=== PATIENT | female | born 1985 | race Two or more races ===

== ENCOUNTER 2021-03-17 17:17 | Emergency (ER) | payer BC ==
[~2021-03-17] VITALS: Ht 162.6 cm; Wt 59.5 kg
[2021-03-17] MEDS ORDERED: ASPIRIN CHEWABLE 81 MG TABLET. PO ONE (18:00)
[2021-03-17 18:10] LABS: BILIRUBIN,URINE NEGATIVE (NEG); CLARITY,URINE CLEAR; COLOR,URINE YELLOW; NITRITE,URINE NEGATIVE (NEG); PROTEIN,URINE NEGATIVE (NEG-TRACE); UROBILINOGEN,URINE 0.2 mg/dL (0.2 mg/dL)
[2021-03-17 18:18] LABS: BACTERIA,URINE 0 /HPF (0-FEW); RBC,URINE 0 /HPF (0-2); WBC,URINE 0 /HPF (0-4)
[2021-03-17 18:40] LABS: BASO # 0.1 x10^3/uL (0.0-0.2); BASO % 1 % (0-3); EOS # 0.1 x10^3/uL (0.0-0.7); EOS % 1 % (0-3); HEMATOCRIT 40.8 % (36.0-47.0); HEMOGLOBIN 13.9 g/dL (12.0-15.5); LYMPH # 2.3 x10^3/uL (1.0-4.8); LYMPH % 38 % (24-48); MEAN CORPUSCULAR HEMOGLOBIN 32 pg (25-35); MEAN CORPUSCULAR HGB CONC 34 g/dL (31-37); MEAN CORPUSCULAR VOLUME 94 fL (79-100); MONO # 0.4 x10^3/uL (0.0-1.1); MONO % 7 % (0-9); NEUT # 3.3 x10^3/uL (1.8-7.7); NEUT % 53 % (31-73); PLATELET COUNT 154 x10^3/uL (140-400); RED BLOOD COUNT 4.36 x10^6/uL (3.50-5.40); RED CELL DISTRIBUTION WIDTH 12.6 % (11.5-14.5); WHITE BLOOD COUNT 6.2 x10^3/uL (4.0-11.0)
--- NOTE | 2021-03-17 18:49 | RAD ---
AP chest. HISTORY: Chest pain AP view was taken of the chest. Lungs are clear. Heart is normal in size. There is no pleural effusio n. IMPRESSION: 1. No acute chest disease. Electronically signed by: Richard Marshall MD (03/17/2021 6:47 PM) [facility]
[2021-03-17 18:50] LABS: CALCIUM 8.6 mg/dL (8.5-10.1); CREATININE 0.6 mg/dL (0.6-1.0); GFR 113.8; POTASSIUM 3.7 mmol/L (3.5-5.1)
[2021-03-17 18:56] LABS: ALBUMIN 3.8 g/dL (3.4-5.0); ALBUMIN/GLOBULIN RATIO 1.1 (1.0-1.7); TOTAL BILIRUBIN 0.4 mg/dL (0.2-1.0); TOTAL PROTEIN 7.3 g/dL (6.4-8.2)
--- NOTE | 2021-03-17 20:06 | PHYS DOC ---
Past Medical History Additional Past Medical Histor: CVOID-JULY 2019 (JEFFERSON THRASHER APRN) Past Surgical History: No Surgical History (JEFFERSON THRASHER APRN) Smoking Status: Never Smoker Alcohol Use: None Drug Use: None (JEFFERSON THRASHER APRN) General Adult EDM: Chief Complaint: CHEST PAIN HPI: HPI: Patient is a 36-year-old female the presents today with chest pain over the last 2 days. Patient states that she has had a in the family, and has been dealing with issues with her son and has been under a lot of anxiety and stress over the last couple of weeks, and she feels like this chest pain is related to that. She called her primary care doctor's office and they directed her to come to the emergency department for evaluation. She denies shortness of air, fever, diaphoresis, nausea and vomiting, or cough. (JEFFERSON THRASHER APRN) Review of Systems: Review of Systems: Constitutional: Denies fever or chills. [] Eyes: Denies change in visual acuity. [] HENT: Denies nasal congestion or sore throat. [] Respiratory: Denies cough or shortness of breath. [] Cardiovascular: Chest pain GI: Denies abdominal pain, nausea, vomiting, bloody stools or diarrhea. [] : Denies dysuria. [] Musculoskeletal: Denies back pain or joint pain. [] Integument: Denies rash. [] Neurologic: Denies headache, focal weakness or sensory changes. [] Endocrine: Denies polyuria or polydipsia. [] Lymphatic: Denies swollen glands. [] Psychiatric: Denies depression or anxiety. [] (JEFFERSON THRASHER MEDICAL REPRESENTATIVE) Heart Score: C/O Chest Pain: Yes HEART Score for Chest Pain: HEART Score for Chest Pain Response (Comments) Value History Slighlty/Non-Suspicious 0 ECG Normal 0 Age < 45 0 Risk Factors No Risk Factors 0 Troponin < Normal Limit 0 Total 0 Risk Factors: Risk Factors: DM, Current or recent (<one month) smoker, HTN, HLP, family history of CAD, obesity. Risk Scores: Score 0 - 3: 2.5% MACE over next 6 weeks - Discharge Home Score 4 - 6: 20.3% MACE over next 6 weeks - Admit for Clinical Observation Score 7 - 10: 72.7% MACE over next 6 weeks - Early Invasive Strategies (JEFFERSON THRASHER APRN) Current Medications: Current Medications Medications (Trade) Dose Ordered Sig/Syeda Start Time Stop Time Status Last Admin Dose Admin Aspirin (Aspirin Chewable) 324 mg 1X ONCE 03/17/21 18:00 03/17/21 18:04 DC 03/17/21 18:39 324 MG (JEFFERSON THRASHER APRN) Allergies: Allergies: Allergies Coded Allergies Type Severity Reaction Last Updated Verified No Known Drug Allergies 03/17/21 No (JEFFERSON THRASHER APRN) Physical Exam: PE: Constitutional: Well developed, well nourished, no acute distress, non-toxic appearance. [] HENT: Normocephalic, atraumatic, bilateral external ears normal, oropharynx moist, no oral exudates, nose normal. [] Eyes: PERRLA, EOMI, conjunctiva normal, no discharge. [] Neck: Normal range of motion, no tenderness, supple, no stridor. [] Cardiovascular:Heart rate regular rhythm, no murmur [] Lungs & Thorax: Bilateral breath sounds clear to auscultation [] Abdomen: Bowel sounds normal, soft, no tenderness, no masses, no pulsatile masses. [] Skin: Warm, dry, no erythema, no rash. [] Back: No tenderness, no CVA tenderness. [] Extremities: No tenderness, no cyanosis, no clubbing, ROM intact, no edema. [] Neurologic: Alert and oriented X 3, normal motor function, normal sensory function, no focal deficits noted. [] Psychologic: Affect normal, judgement normal, mood normal. [] (JEFFERSON THRASHER MEDICAL REPRESENTATIVE) Current Patient Data: Labs: Laboratory Tests Test 03/17/21 17:35 03/17/21 17:42 03/17/21 18:30 Urine Collection Type Unknown Urine Color Yellow Urine Clarity Clear Urine pH 6.0 (<5.0-8.0) Urine Specific [place] 1.015 (1.000-1.030) Urine Protein Negative mg/dL (NEG-TRACE) Urine Glucose (UA) Negative mg/dL (NEG) Urine Ketones (Stick) 40 mg/dL (NEG) Urine Blood Negative (NEG) Urine Nitrite Negative (NEG) Urine Bilirubin Negative (NEG) Urine Urobilinogen Dipstick 0.2 mg/dL (0.2 mg/dL) Urine Leukocyte Esterase Negative (NEG) Urine RBC 0 /HPF (0-2) Urine WBC 0 /HPF (0-4) Urine Squamous Epithelial Cells Mod /LPF Urine Bacteria 0 /HPF (0-FEW) Urine Mucus Slight /LPF POC Urine HCG, Qualitative Hcg negative (Negative) White Blood Count 6.2 x10^3/uL (4.0-11.0) Red Blood Count 4.36 x10^6/uL (3.50-5.40) Hemoglobin 13.9 g/dL (12.0-15.5) Hematocrit 40.8 % (36.0-47.0) Mean Corpuscular Volume 94 fL (79-100) Mean Corpuscular Hemoglobin 32 pg (25-35) Mean Corpuscular Hemoglobin Concent 34 g/dL (31-37) Red Cell Distribution Width 12.6 % (11.5-14.5) Platelet Count 154 x10^3/uL (140-400) Neutrophils (%) (Auto) 53 % (31-73) Lymphocytes (%) (Auto) 38 % (24-48) Monocytes (%) (Auto) 7 % (0-9) Eosinophils (%) (Auto) 1 % (0-3) Basophils (%) (Auto) 1 % (0-3) Neutrophils # (Auto) 3.3 x10^3/uL (1.8-7.7) Lymphocytes # (Auto) 2.3 x10^3/uL (1.0-4.8) Monocytes # (Auto) 0.4 x10^3/uL (0.0-1.1) Eosinophils # (Auto) 0.1 x10^3/uL (0.0-0.7) Basophils # (Auto) 0.1 x10^3/uL (0.0-0.2) D-Dimer (Tamar) < 0.27 ug/mlFEU Sodium Level 142 mmol/L (136-145) Potassium Level 3.7 mmol/L (3.5-5.1) Chloride Level 104 mmol/L (98-107) Carbon Dioxide Level 28 mmol/L (21-32) Anion Gap 10 (6-14) Blood Urea Nitrogen 10 mg/dL (7-20) Creatinine 0.6 mg/dL (0.6-1.0) Estimated GFR (Cockcroft-Gault) 113.8 BUN/Creatinine Ratio 17 (6-20) Glucose Level 88 mg/dL (70-99) Calcium Level 8.6 mg/dL (8.5-10.1) Total Bilirubin 0.4 mg/dL (0.2-1.0) Aspartate Amino Transferase (AST) 21 U/L (15-37) Alanine Aminotransferase (ALT) 29 U/L (14-59) Alkaline Phosphatase 62 U/L (46-116) Troponin I High Sensitivity 4 ng/L (4-50) Total Protein 7.3 g/dL (6.4-8.2) Albumin 3.8 g/dL (3.4-5.0) Albumin/Globulin Ratio 1.1 (1.0-1.7) Laboratory Tests 03/17/21 18:30 Laboratory Tests 03/17/21 18:30 Vital Signs: Vital Signs Date Time Temp Pulse Resp B/P (MAP) Pulse Ox O2 Delivery O2 Flow Rate FiO2 03/17/21 20:08 84 17 104/65 (78) 100 Room Air 03/17/21 19:38 80 14 95/50 (65) 99 Room Air 03/17/21 19:08 80 18 105/65 (78) 100 Room Air 03/17/21 18:39 89 18 111/67 (82) 100 Room Air 03/17/21 17:19 97.8 88 16 134/85 (101) 100 Room Air 97.8 Vital Signs Date Time Temp Pulse Resp B/P (MAP) Pulse Ox O2 Delivery O2 Flow Rate FiO2 03/17/21 18:39 89 18 111/67 (82) 100 Room Air 03/17/21 17:19 97.8 97.8 (JEFFERSON THRASHER APRN) EKG: EKG: EKG #1: EKG done at [address] Quinones at 1727 no STEMI heart rate is 85 sinus rhythm with a WI interval of 132 ms with a QT interval of 448 ms EKG #2 : EKG done at [address] Abraham at 1827 heart rate of 81 no STEMI WI interval 132 ms with a QT interval of 442 MS[] (JEFFERSON THRASHER APRN) Radiology/Procedures: Radiology/Procedures: REASON: chest pain PROCEDURE: CHEST AP ONLY AP chest. HISTORY: Chest pain AP view was taken of the chest. Lungs are clear. Heart is normal in size. There is no pleural effusion. IMPRESSION: 1. No acute chest disease. Electronically signed by: Richard Marshall MD (03/17/2021 6:47 PM) [facility][] (JEFFERSON THRASHER APRN) Course & Med Decision Making: Course & Med Decision Making Pertinent Labs and Imaging studies reviewed. (See chart for details) 1944 reviewed labs and radiological findings with patient. Informed patient that there is no acute processes at this time. And due to all the social distress that the patient does have I feel this is contributing to her chest pain. She agrees she feels like she has been very anxious and has had a lot of grief in her life over the last couple weeks and she feels that is contributing to this. She does states she has a cardiology appointment scheduled for next we on Monday to be evaluated for this chest pain. I did encourage her to keep that appointment and they can always call and get her results here from [facility]. Patient is encouraged to return to the emergency department if her pain gets worse or changes anyway. Patient verbalizes understanding of all of this and is agreeable to the plan of care. (JEFFERSON THRASHER APRN) Dragon Disclaimer: Dragon Disclaimer: This electronic medical record was generated, in whole or in part, using a voice recognition dictation system. (JEFFERSON THRASHER MEDICAL REPRESENTATIVE) Departure Departure Impression: Primary Impression: Chest pain Qualified Codes: R07.9 - Chest pain, unspecified Disposition: HOME / SELF CARE / HOMELESS Condition: STABLE Referrals: JACIEL GARCIA MD (PCP) Patient Instructions: Chest Pain (Nonspecific) Additional Instructions: Continue to keep your cardiology appointment for next week. Return to the emergency department for any changes in your chest pain, you experience increased shortness of breath, you develop a fever, or inability to keep any by mouth fluids down. Attending Signature Attending Signature I have reviewed the PA/ADMISSION LIAISON's note and plan of care. I was available for consultation as needed during the patient's visit in the emergency department. I agree with the clinical impression, plan, and disposition. (JUAN DAVID ABRAHAM DO) JEFFERSON THRASHER APRN Mar 17, 2021 20:06 JUAN DAVID ABRAHAM DO Mar 18, 2021 02:06
[2021-03-17 20:08] VITALS: BP 104/65
--- NOTE | 2021-03-18 07:36 | EKG ---
[facility] [address] [place] [address] Test Date: 2021-03-17 Test Time: 17:24:19 Pat Name: KARINA CARBONE Department: Room: Gender: F Party Plan Sales Director: : 1985 Requested By: JEFFERSON THRASHER Order Number: [id number] Reading MD: Jameel Zarate Measurements Intervals [place] Rate: 85 P: 57 MD: 132 QRS: 78 QRSD: 90 T: 52 QT: 372 QTc: 448 Interpretive Statements SINUS RHYTHM INCOMPLETE RIGHT BUNDLE BRANCH BLOCK Electronically Signed On 03-20-2021 16:30:06 DIRECTOR OF CONSUMER AFFAIRS by Jameel Zarate
--- NOTE | 2021-03-18 09:03 | EKG ---
[facility] [address] [place] [address] Test Date: 2021-03-17 Test Time: 18:24:48 Pat Name: KARINA CARBONE Department: Room: Gender: F Park Guard: : 1985 Requested By: JEFFERSON THRASHER Order Number: [id number] Reading MD: Jameel Zarate Measurements Intervals [place] Rate: 81 P: 63 [place]: 130 QRS: 78 QRSD: 88 T: 50 QT: 380 QTc: 442 Interpretive Statements SINUS RHYTHM INCOMPLETE RIGHT BUNDLE BRANCH BLOCK Electronically Signed On 03-20-2021 16:29:32 CARPENTRY SPECIALIST by Jameel Zarate
--- NOTE | 2021-03-30 15:57 | EKG ---
[facility] [address] [place] [address] Test Date: 2021-03-17 Test Time: 18:24:48 Pat Name: KARINA CARBONE Department: Room: Gender: F It Infrastructure Consultant: : 1985 Requested By: JEFFERSON THRASHER Order Number: [id number] Reading MD: [place]ell Measurements Intervals [place] Rate: 81 P: 63 [place]: 130 QRS: 78 QRSD: 88 T: 50 QT: 380 QTc: 442 Interpretive Statements SINUS RHYTHM INCOMPLETE RIGHT BUNDLE BRANCH BLOCK Electronically Signed On 03-31-2021 19:40:25 MACHINE PECAN GATHERER by Von Chappell
== END 2021-03-17 20:25 | disposition home or self-care (01) ==
LOC: ER 17:17
DX: R07.89 Other chest pain (principal)
CPT/HCPCS: 36415; 71045; 80053; 81001; 81025; 84484; 85025; 85379; 93005; 99285-25